=== PATIENT | male | born 1965 | race Caucasian/White ===

== ENCOUNTER 2021-10-29 08:29 | Emergency (ER) | payer BC ==
[2021-10-29] MEDS ORDERED: Ketorolac 30 MG/ML SDV IM ONE (11:14)
== END 2021-10-29 12:47 | disposition home or self-care (01) ==
LOC: JD.ED 08:29
DX: N43.3 Hydrocele, unspecified (principal); R10.32 Left lower quadrant pain; E78.00 Pure hypercholesterolemia, unspecified; I10 Essential (primary) hypertension; K21.9 Gastro-esophageal reflux disease without esophagitis; Z72.0 Tobacco use; Z88.5 Allergy status to narcotic agent; Z79.899 Other long term (current) drug therapy
CPT/HCPCS: 76870; 81001; 93975; 96372; 99284; J1885; 99283

== ENCOUNTER 2024-02-26 13:22 | Emergency (ER) | payer BC ==
[2024-02-26 14:11] LABS: BASOPHILS ABSOLUTE AUTO 0.1 K/mm3 (0.0-0.2); BASOPHILS PERCENT AUTO 0.7 % (0.0-1.0); EOSINOPHILS ABSOLUTE AUTO 0.1 K/mm3 (0.0-0.4); EOSINOPHILS PERCENT AUTO 0.8 % (0.0-6.0); HEMOGLOBIN 13.8 gm/dl (14.0-18.0); IMMATURE GRAN ABSOLUTE AUTO 0.07 K/mm3 (0.00-0.05); IMMATURE GRAN PERCENT AUTO 0.9 % (0.0-0.4); LYMPHOCYTES ABSOLUTE AUTO 1.8 K/mm3 (1.0-4.8); LYMPHOCYTES PERCENT AUTO 23.7 % (24.0-44.0); MEAN CORPUSCULAR HEMOGLOBIN 32.2 pg (28.0-32.0); MEAN CORPUSCULAR HGB CONC 34.5 g/dl (32.0-36.0); MEAN CORPUSCULAR VOLUME 93.2 fl (83.0-99.0); MEAN PLATELET VOLUME 9.6 fl (9.4-12.4); MONOCYTES ABSOLUTE AUTO 0.8 K/mm3 (0.0-0.8); MONOCYTES PERCENT AUTO 10.1 % (0.0-8.0); NEUTROPHILS ABSOLUTE AUTO 4.8 K/mm3 (1.8-7.7); NEUTROPHILS PERCENT AUTO 63.8 % (41.0-71.0); PLATELET COUNT,PLT 236 K/mm3 (150-400); RED BLOOD CELL COUNT 4.29 M/mm3 (4.52-5.90); WHITE BLOOD CELL COUNT,WBC 7.46 K/mm3 (3.9-11.3)
[2024-02-26] MEDS: Aspirin 81 MG Tab.Chew PO ONE (14:30)
[2024-02-26] MEDS: Sodium Chloride 0.9% 1,000 ML IV SCH (14:33)
[2024-02-26] MEDS: Nitroglycerin 0.4 MG Tab.SL SL PRN (14:34)
[2024-02-26] MEDS: Sodium Chloride 0.9% 10 ML Syringe FLUSH PRN (14:34)
[2024-02-26 14:35] LABS: ALBUMIN 3.6 g/dl (3.4-5.0); ANION GAP 11.8 (5-15); BILIRUBIN TOTAL 0.9 mg/dL (0.2-1.0); BUN/CREATININE RATIO 15.6 (14-18); CALCIUM 9.1 mg/dL (8.5-10.1); CREATININE 0.9 mg/dL (0.7-1.3); EST CRCL DRUG DOSING (CG) 91.25 mL/min; MAGNESIUM 1.4 mg/dL (1.8-2.4); POTASSIUM,K 3.8 mEq/L (3.5-5.1); PROTEIN TOTAL,TP 7.3 g/dl (6.4-8.2)
[2024-02-26] MEDS: Ibuprofen 600 MG Tab PO ONE (16:25)
[2024-02-26] MEDS: Magnesium Sulfate/Water 2 GM in Premix Bag 1 BAG IV ONE (16:25)
[2024-02-26] MEDS: Albuterol 6.7 GM Inhaler INH ONE (16:35)
== END 2024-02-26 18:25 | disposition home or self-care (01) ==
LOC: JD.ED 13:22
DX: R07.89 Other chest pain (principal); E83.42 Hypomagnesemia; R06.02 Shortness of breath; R53.83 Other fatigue; R00.2 Palpitations; I10 Essential (primary) hypertension; E78.00 Pure hypercholesterolemia, unspecified; K21.9 Gastro-esophageal reflux disease without esophagitis; Z88.5 Allergy status to narcotic agent; Z79.899 Other long term (current) drug therapy; Z79.51 Long term (current) use of inhaled steroids
CPT/HCPCS: 36415; 71046; 80053; 83735; 83880; 84484; 85025; 85379; 85652; 86140; 93005; 93242; 94640; 96365; 96366; 99285; A9270; J3475; J3490; J7030

== ENCOUNTER 2025-01-27 09:29 | Day surgery (SDC) | payer BC ==
[~2025-01-27 09:29] MED LIST: Sodium Chloride 0.9% 10 ML Syringe FLUSH PRN; Sodium Chloride 0.9% 10 ML Syringe FLUSH SCH
[2025-01-27] MEDS ORDERED: Midazolam 1 MG/ML 2 ML SDV ONE (09:52)
[2025-01-27] MEDS: Lactated Ringers 1,000 ML IV SCH (10:10)
[2025-01-27] MEDS ORDERED: Lidocaine 1% 4 ML ONE (10:11)
[2025-01-27] MEDS ORDERED: Propofol 200 MG/20 ML SDV ONE ×3 (10:11→11:25)
== END 2025-01-27 12:15 | disposition home or self-care (01) ==
LOC: JD.SDS 09:29
PROVIDERS: ATTEND Surgery
DX: D12.2 Benign neoplasm of ascending colon (principal); D12.3 Benign neoplasm of transverse colon; D12.4 Benign neoplasm of descending colon; D12.5 Benign neoplasm of sigmoid colon; D12.8 Benign neoplasm of rectum; K29.50 Unspecified chronic gastritis without bleeding; K44.9 Diaphragmatic hernia without obstruction or gangrene; D64.9 Anemia, unspecified; I10 Essential (primary) hypertension; E78.2 Mixed hyperlipidemia; Z87.891 Personal history of nicotine dependence; Z79.899 Other long term (current) drug therapy; Z88.5 Allergy status to narcotic agent
CPT/HCPCS: 43239; 45385; C9777; J2003; J2250; J2704; J7120; 00813